=== PATIENT | male | born 1975 | race Caucasian/White ===

== ENCOUNTER 2017-01-09 14:16 | Emergency (ER) | payer OTHER ==
[2017-01-09 14:20] VITALS: BP 157/84; PULSE 77; TEMP 98.5; BMI 29.5
--- NOTE | 2017-01-09 14:44 | PDOC ---
History of Present Illness - General Chief Complaint: Pain, Acute Stated Complaint: WRIST/ANKLE INJURY Time Seen by Provider: 01/09/17 14:38 History Source: Patient Exam Limitations: No Limitations - History of Present Illness Initial Comments: 01/09/17 14:39 slipped and fell twisting right wrist and left ankle. Abloe to bear weight but painful to posterior aspect. Right hand painful to bend at wrsit 01/09/17 14:41 01/09/17 22:48 Occurred: reports: just prior to arrival, this afternoon Severity: reports: mild, moderate Pain Location: reports: none Method of Injury: Yes: fall Modifying Factors: improves with: cold therapy Loss of Consciousness: no loss of consciousness Associated Symptoms (Fall): denies symptoms Past History - Travel Traveled outside of the country in the last 30 days: No Close contact w/someone who was outside of country & ill: No - Past Medical History Allergies/Adverse Reactions: Allergies Allergy/AdvReac Type Severity Reaction Status Date / Time No Known Allergies Allergy Verified 01/09/17 14:18 Home Medications: Ambulatory Orders No Home Medications 0 dose .ROUTE UTDICT 10/04/12 Naproxen [Naprosyn -] 500 mg PO BID #20 tablet 01/09/17 Other medical history: DENIES. - Psycho/Social/Smoking Cessation Hx Anxiety: No Suicidal Ideation: No Smoking Status: No Smoking History: Never smoked Number of Cigarettes Smoked Daily: 0 Hx Alcohol Use: No Drug/Substance Use Hx: No Substance Use Type: None Trauma Specific PMHX - Complaint Specific PMHX Back Injury: No Neck Injury: No Review of Systems - Review of Systems Able to Perform ROS?: Yes Is the patient limited Greenlandic proficient: Yes Constitutional: Yes: Symptoms Reported, See HPI. No: Malaise HEENTM: No: Symptoms Reported Respiratory: No: Symptoms reported Musculoskeletal: Yes: Symptoms Reported, See HPI, Joint Pain, Joint Swelling Integumentary: Yes: Symptoms Reported, See HPI, Bruising All Other Systems: Reviewed and Negative *Physical Exam - Vital Signs Last Vital Signs Temp Pulse Resp BP Pulse Ox 98.5 F 77 18 157/84 99 01/09/17 14:17 01/09/17 14:17 01/09/17 14:17 01/09/17 14:17 01/09/17 14:17 - Physical Exam General Appearance: Yes: Nourished, Appropriately Dressed, Apparent Distress, Mild Distress HEENT: positive: [place], Normal ENT Inspection, TMs Normal, Pharynx Normal Neck: positive: Supple Respiratory/Chest: positive: Lungs Clear Musculoskeletal: positive: Decreased Range of Motion (mild decrease in range of motion secondary to tenderness at right wrist, has no snuffbox tenderness, full range of motion of fingers and neurovascular intact however with flexion and extension at wrist reproduces pain at carpel tunnel area and ligamentous area.) . negative: Normal Inspection Extremity: positive: Normal Capillary Refill, Normal Range of Motion (left ankle with no point tenderness to medial or lateral malleolus, no navicular or fifth metatarsal injury, negative squeeze test. Has some mild swelling and tenderness to the lateral aspect and posterior aspect of lateral foot) Integumentary: positive: Normal Color, Ecchymosis, Bruising Neurologic: positive: cad draftsman II-XII NML intact, Fully Oriented, Alert, Normal Mood/ Affect, Normal Response, Motor Strength 5/5 Progress Note - Progress Note Progress Note: Negative for fractures in wrist and ankle . Splinted wrsit and teresa to ankle. Naprosyn for swelling and pain, and F/U with ORTHO *DC/Admit/Observation/Transfer Diagnosis at time of Disposition: Sprain of wrist, right Qualifiers: Encounter type: initial encounter Qualified Code(s): S63.501A - Unspecified sprain of right wrist, initial encounter Left ankle sprain Qualifiers: Encounter type: initial encounter Involved ligament of ankle: unspecified ligament Qualified Code(s): S93.402A - Sprain of unspecified ligament of left ankle, initial encounter - Discharge Dispostion Disposition: HOME Condition at time of disposition: Stable Admit: No - Prescriptions Prescriptions: Naproxen [Naprosyn -] 500 mg PO BID #20 tablet - Referrals Referrals: Jozef Weston MD [Primary Care Provider] - - Patient Instructions Printed Discharge Instructions: How to Use a Sling, DI for Ligament Sprains Additional Instructions: Rest, ELevate, Ice to area on and off, USe splints until cleared by Orthopedist Naprosyn 500mg tab every 8 hours for 2 days then as needed Followup with Orthopedist if not improved or worsened symptoms - Post Discharge Activity Work/School Note: Back to Work
[2017-01-09] MEDS ORDERED: IBUPROFEN 600 MG TABLET (FP) PO ONE (14:56)
== END 2017-01-09 15:09 | disposition home or self-care (01) ==
LOC: SUPCPDRO 14:16 → JERFT 14:16
PROC: 2W3CX1Z Immobilization of Right Lower Arm using Splint (ICD-10-PCS; principal; 2017-01-09)
DX: S63.501A Unspecified sprain of right wrist, initial encounter (principal); S93.492A Sprain of other ligament of left ankle, initial encounter; W18.39XA Other fall on same level, initial encounter; Y93.89 Activity, other specified; Y92.69 Other specified industrial and construction area as the place of occurrence of the external cause; Y99.0 Civilian activity done for income or pay
CPT/HCPCS: 73130-TC-RT; 73610-TC-LT; 99281-25

== ENCOUNTER 2017-10-06 15:34 | Emergency (ER) | payer OTHER ==
[2017-10-06 15:57] VITALS: PULSE 81; TEMP 97.8; BMI 31.0
--- NOTE | 2017-10-06 15:59 | PDOC ---
Rapid Medical Evaluation Time Seen by Provider: 10/06/17 15:52 Medical Evaluation: Allergies Allergy/AdvReac Type Severity Reaction Status Date / Time No Known Allergies Allergy Verified 01/09/17 14:18 10/06/17 15:52 I have performed a brief in-person evaluation of this patient. The patient presents with a chief complaint of: neck pain s/p injury yesterday - was struck by tire and had ~ whiplash injury from blocking - mild pain yesserday but w/u today with worsening. now c/o pain and spasm to neck, no bone pain. No Meds taken. Pertinent physical exam findings: tense , tight muscles with palp spasm bilat/ worse on left. to Upper back and neck. I have ordered the following: Cerv spine The patient will proceed to the ED for further evaluation
--- NOTE | 2017-10-06 16:14 | PDOC ---
History of Present Illness - General Chief Complaint: Pain, Acute Stated Complaint: NECK PAIN Time Seen by Provider: 10/06/17 15:52 History Source: Patient Exam Limitations: No Limitations - History of Present Illness Initial Comments: 10/06/17 16:14 42 yr male with neck pain after trying to catch a tire that was rolling down a hill and he felt his neck went backwards. pt has pain to the neck with movement and side to side . Pt denies numbness or tingling no abd pain or chest pain. 10/06/17 16:33 Severity: reports: moderate Pain Location: reports: neck Loss of Consciousness: no loss of consciousness Associated Symptoms (Fall): denies symptoms Past History - Past Medical History Allergies/Adverse Reactions: Allergies Allergy/AdvReac Type Severity Reaction Status Date / Time No Known Allergies Allergy Verified 10/06/17 15:53 Home Medications: Ambulatory Orders Cyclobenzaprine HCl [Flexeril -] 10 mg PO TID PRN #21 tablet 10/06/17 Methylprednisolone [Medrol Dose Leif] 4 mg PO ASDIR #21 tablet 10/06/17 COPD: No - Suicide/Smoking/Psychosocial Hx Smoking Status: No Smoking History: Never smoked Number of Cigarettes Smoked Daily: 0 Hx Alcohol Use: No Drug/Substance Use Hx: No Substance Use Type: None Trauma Specific PMHX - Complaint Specific PMHX Back Injury: No Neck Injury: No Review of Systems - Review of Systems Able to Perform ROS?: Yes Is the patient limited Andorran proficient: No Constitutional: No: Symptoms Reported HEENTM: No: Symptoms Reported Respiratory: No: Symptoms reported Cardiac (ROS): No: Symptoms Reported ABD/GI: No: Symptoms Reported : No: Symptoms Reported Musculoskeletal: Yes: Symptoms Reported Integumentary: No: Symptoms Reported *Physical Exam - Vital Signs Last Vital Signs Temp Pulse Resp BP Pulse Ox 97.8 F 81 19 165/104 98 10/06/17 15:53 10/06/17 15:53 10/06/17 15:53 10/06/17 15:53 10/06/17 15:53 - Physical Exam General Appearance: Yes: Nourished, Appropriately Dressed HEENT: positive: EOMI, [place], Normal ENT Inspection, TMs Normal, Pharynx Normal Neck: positive: Supple. negative: Tender Respiratory/Chest: positive: Lungs Clear, Normal Breath Sounds. negative: Chest Tender Cardiovascular: positive: Regular Rhythm, Regular Rate Musculoskeletal: positive: Normal Inspection, Decreased Range of Motion, Muscle Spasm. negative: Vertebral Tenderness Extremity: positive: Normal Capillary Refill, Normal Inspection, Normal Range of Motion Integumentary: positive: Normal Color, Dry, Warm Neurologic: positive: Fully Oriented, Alert, Normal Mood/Affect, Normal Response , Motor Strength 5/5 Medical Decision Making - Medical Decision Making 10/06/17 16:53 cc: neck pain after trying to catching a tire yesterday causing whiplash injury neg numbness or tingling will give toradol valium pt with spasm 10/06/17 17:00 pt has no history of hypertension has no headache no dizzyness, no chest pain or numbness or weakness pt will follow with his pmd for BP recheck 10/06/17 17:04 *DC/Admit/Observation/Transfer Diagnosis at time of Disposition: Whiplash injury Qualifiers: Encounter type: initial encounter Qualified Code(s): S13.4XXA - Sprain of ligaments of cervical spine, initial encounter - Discharge Dispostion Disposition: HOME Condition at time of disposition: Good - Prescriptions Prescriptions: Cyclobenzaprine HCl [Flexeril -] 10 mg PO TID PRN #21 tablet PRN Reason: Muscle Spasms Methylprednisolone [Medrol Dose Leif] 4 mg PO ASDIR #21 tablet - Referrals Referrals: Jozef Weston MD [Primary Care Provider] - Yobany Rebolledo MD, FAANS [Staff Physician] - - Patient Instructions Additional Instructions: please call the neurosurgeon tomorrow to make appointment for follow up this week or next week follow with your primary care doctor for blood pressure re check apply ice every 2hrs for 20 minutes for the next 2 days you can alternate with heating pad in between the ice applications take flexeril for muscle spasm take medrol dose pack for pain and inflamation - Post Discharge Activity
[2017-10-06] MEDS ORDERED: diazePAM 5 MG TABLET PO ONE (16:32)
[2017-10-06] MEDS ORDERED: KETOROLAC TROMETHAMINE 60 MG/2 ML VIAL IM ONE (16:32)
[2017-10-06] MEDS ORDERED: KETOROLAC TROMETHAMINE 60 MG/2 ML VIAL ONE (16:34)
[2017-10-06] MEDS ORDERED: diazePAM 5 MG TABLET ONE (16:35)
[2017-10-06 17:03] VITALS: BP 161/105
== END 2017-10-06 17:09 | disposition home or self-care (01) ==
LOC: JERFT 15:34
PROC: 3E0233Z Introduction of Anti-inflammatory into Muscle, Percutaneous Approach (ICD-10-PCS; principal; 2017-10-06)
DX: S13.4XXA Sprain of ligaments of cervical spine, initial encounter (principal); X50.1XXA Overexertion from prolonged static or awkward postures, initial encounter; Y93.89 Activity, other specified; Y92.89 Other specified places as the place of occurrence of the external cause; Y99.8 Other external cause status
CPT/HCPCS: 72050-TC-FY; 99281-25

== ENCOUNTER 2019-01-21 21:40 | Emergency (ER) | payer OTHER ==
[2019-01-21 21:49] VITALS: BMI 28.7
--- NOTE | 2019-01-21 21:50 | PDOC ---
Rapid Medical Evaluation Time Seen by Provider: 01/21/19 21:45 Medical Evaluation: Allergies Allergy/AdvReac Type Severity Reaction Status Date / Time No Known Allergies Allergy Verified 10/06/17 15:53 01/21/19 21:45 Pt presents for reported high blood pressure. He states he went to urgent care for neck pain and was told his blood pressure was very high. Exam: NAD, BP 168/86 Orders: EKG Pt to proceed to the ER for evaluation Discharge Disposition - Diagnosis HTN (hypertension) - Referrals Referrals: Jozef Weston MD [Primary Care Provider] - - Patient Instructions - Post Discharge Activity
[2019-01-21] MEDS ORDERED: KETOROLAC TROMETHAMINE 60 MG/2 ML VIAL IM ONE (23:40)
--- NOTE | 2019-01-21 23:40 | PDOC ---
History of Present Illness - General Chief Complaint: Blood Pressure Problem Stated Complaint: Blood Pressure Problem Time Seen by Provider: 01/21/19 21:45 - History of Present Illness Initial Comments: 01/21/19 23:44 CHIEF COMPLAINT: neck pain HISTORY OF PRESENT ILLNESS: 43 yo M with hx of herniated cervical disc presents sent by urgent care concerns of elevated BP. Patient states he had a blood pressure of 150s/110s and was advised to come immediately to the ER. Patient denies any headache, change in vision. 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 PAST MEDICAL HISTORY: Denies past medical history FAMILY HISTORY: Denies SOCIAL HISTORY: Denies tobacco, alcohol, illicit drug use. SURGICAL HISTORY: Denies ALLERGIES: No known drug allergies REVIEW OF SYSTEMS General/Constitutional: Denies fever or chills. Denies weakness, weight change. HEENT: Denies change in vision. Denies ear pain or discharge. Denies sore throat. Cardiovascular: Denies chest pain or shortness of breath. Respiratory: Denies cough, wheezing, or hemoptysis. Gastrointestinal: Denies nausea, vomiting, diarrhea or constipation. Denies rectal bleeding. Genitourinary: Denies dysuria, frequency, or change in urination. Musculoskeletal: Neck soreness. Denies joint or muscle swelling or pain. Skin and breasts: Denies rash or easy bruising. Neurologic: Denies headache, vertigo, loss of consciousness, or loss of sensation. Psychiatric: Denies depression or anxiety. PHYSICAL EXAM General Appearance: Well-appearing, appropriately dressed. No apparent distress. HEENT: EOMI, PERRLA, normal ENT inspection, normal voice, TMs normal, pharynx normal. No conjunctival pallor. No photophobia, scleral icterus. Neck: Supple. Trachea midline. No tenderness, rigidity, carotid bruit, stridor , lymphadenopathy, or thyromegaly. Respiratory/Chest: Lungs CTAB. No shortness of breath, chest tenderness, respiratory distress, accessory muscle use. No crackles, rales, rhonchi, stridor , wheezing, dullness Cardiovascular: RRR. S1, S2. No JVD, murmur, bradycardia, tachycardia. Vascular Pulses: Dorsalis-Pedis (R): 2+, Dorsalis-Pedis (L): 2+ Gastrointestinal/Abdominal: Normal bowel sounds. Abdomen soft, non-distended. No tenderness or rebound tenderness. No organomegaly, pulsatile mass, guarding , hernia, hepatomegaly, splenomegaly. Musculoskeletal/Extremities: Normal inspection. FROM of all extremities, normal capillary refill. Pelvis Stable. No CVA tenderness. No tenderness to extremities, pedal edema, swelling, erythema or deformity. Integumentary: Appropriate color, dry, warm. No cyanosis, erythema, jaundice or rash Neurologic: group contract analyst II-XII intact. Fully oriented, alert. Appropriate mood/affect. Motor strength 5/5. No appreciable EOM palsy, facial droop or sensory deficit. 01/21/19 23:45 Past History - Past Medical History Allergies/Adverse Reactions: Allergies Allergy/AdvReac Type Severity Reaction Status Date / Time cyclobenzaprine Allergy Verified 01/22/19 02:12 Home Medications: Ambulatory Orders NK [No Known Home Medication] 01/22/19 COPD: No - Suicide/Smoking/Psychosocial Hx Smoking Status: No Smoking History: Never smoked Number of Cigarettes Smoked Daily: 0 Hx Alcohol Use: No Drug/Substance Use Hx: No Substance Use Type: None *Physical Exam - Vital Signs Last Vital Signs Temp Pulse Resp BP Pulse Ox 98.3 F 69 18 164/86 97 01/21/19 21:46 01/21/19 21:46 01/21/19 21:46 01/21/19 21:46 01/21/19 21:46 Medical Decision Making - Medical Decision Making 01/21/19 23:48 43 yo M with hx of herniated cervical disc presents sent by urgent care concerns of elevated BP. EKG unremarkable Per patient, he has never had a history of high BP "except when I'm in pain." In triage patient BP 160s/80s. Likely elevated secondary to msk pain, unlikely cardiac etiology. Will do b/l BPs. b/l BPs 140s/90s, will dc w/ follow up with cards PCP is Dr. Aguilera and last saw her within the last year and got a stress test with cards which was normal. Advised patient to take medication as prescribed and follow up with cardiology. Advised patient of signs and symptoms for return to ED. Patient verbalized understanding and agrees to plan. *DC/Admit/Observation/Transfer Diagnosis at time of Disposition: HTN (hypertension), Cervical paraspinal muscle spasm - Discharge Dispostion Disposition: HOME Condition at time of disposition: Stable Decision to Admit order: No - Referrals Referrals: Jozef Weston MD [Primary Care Provider] - - Patient Instructions Printed Discharge Instructions: DI for Cervical Muscle Strain, How to Monitor Your Blood Pressure at Home - Post Discharge Activity
[2019-01-22] MEDS ORDERED: KETOROLAC TROMETHAMINE 60 MG/2 ML VIAL ONE
[2019-01-22 01:11] VITALS: BP 147/94
[2019-01-22 01:54] VITALS: PULSE 67; TEMP 97.5
--- NOTE | 2019-01-22 14:22 | EKG ---
Test Reason : Blood Pressure : / mmHG Vent. Rate : 066 BPM Atrial Rate : 066 BPM P-R Int : 146 ms QRS Dur : 080 ms QT Int : 416 ms P-R-T Axes : 039 -08 025 degrees QTc Int : 436 ms NORMAL SINUS RHYTHM MINIMAL VOLTAGE CRITERIA FOR LVH, MAY BE NORMAL VARIANT NO PREVIOUS ECGS AVAILABLE Confirmed by ELIAZAR PRO MD ([id number]) on 01/22/2019 2:22:03 PM Referred By: Confirmed By:ELIAZAR PRO MD
== END 2019-01-22 02:12 | disposition home or self-care (01) ==
LOC: JER 21:40
PROC: 3E0233Z Introduction of Anti-inflammatory into Muscle, Percutaneous Approach (ICD-10-PCS; principal; 2019-01-21)
DX: I10 Essential (primary) hypertension (principal); M62.830 Muscle spasm of back
CPT/HCPCS: 93005; 93010; 99282-25